=== PATIENT | female | born 2000 | race Caucasian/White ===

== ENCOUNTER → 2023-10-25 14:43 | Outpatient (CLI) | payer OTHER, SELFPAY ==
--- NOTE | 2023-10-25 14:47 | DI.CT.S_ITS ---
PROCEDURE: CT LUMBAR SPINE WO CON INDICATIONS: L-T SPINE PAIN, FUSION OF SPINE,H/O KYPHOSIS TECHNIQUE: Noncontrast 0.8 mm thick sections acquired from the T12 level to the sacrum. Sagittal and coronal reformats were constructed. For radiation dose reduction, the following was used: automated exposure control. COMPARISON: [facility], CR, XR THORACIC SPINE 2 VIEWS, 06/19/2023, 14:33. [facility], CT, CT THORACIC SPINE WO CON, 10/25/2023, 15:05. [facility], CR, XR LUMBAR SPINE WITH FLEXION EXTENSION 5 VIEWS, 06/19/2023, 14:24. FINDINGS: Image quality: There is artifact associated with the metallic hardware. Artifact from the metallic hardware is reduced by metal reconstruction algorithm. Bones: There is normal bony alignment. No acute vertebral body compression fractures. No suspicious lytic or blastic bony lesions. No pars defects. Extensive postoperative hardware can be seen, extending from the superior thoracic spine through the L3 level. No findings of hardware failure or hardware loosening are seen. Bone grafting material is noted. No significant neural foraminal or central canal narrowing can be seen. Soft tissues: No retroperitoneal masses or hematomas. Visualized aorta is normal in caliber. IMPRESSION: CT data acquired for intraoperative localization. Extensive thoracolumbar fixation hardware, without complication seen within the lumbar region. Dictated by: Jarvis Cazares M.D. on 10/25/2023 at 14:40 Approved by: Jarvis Cazares M.D. on 10/25/2023 at 14:43
--- NOTE | 2023-10-25 14:47 | DI.CT.S_ITS ---
PROCEDURE: CT THORACIC SPINE WO CON INDICATIONS: L-T SPINE PAIN,FUSIONOF SPINE,H/O KYPHOSIS TECHNIQUE: Noncontrast 0.8 mm thick sections acquired through the region of interest in the thoracic spine. Sagittal and coronal reformats were then constructed. For radiation dose reduction, the following was used: automated exposure control. COMPARISON: [facility], CT, CT LUMBAR SPINE WO CON, 10/25/2023, 15:05. [facility], CR, XR THORACIC SPINE 2 VIEWS, 06/19/2023, 14:33. [facility], CR, XR LUMBAR SPINE WITH FLEXION EXTENSION 5 VIEWS, 06/19/2023, 14:24. FINDINGS: Image quality: There is artifact associated with the metallic hardware. Artifact from the metallic hardware is reduced by metal reconstruction algorithm. Bones: There is normal overall bony alignment. No acute vertebral body compression fractures. No suspicious sclerotic or lytic bony lesions. Central spinal canal is of normal overall caliber. Extensive thoracolumbar fixation hardware is seen, with Lafleur rods beginning at the T3 level. Pedicle screws are seen, beginning at the T4 level and extending through to the lumbar spine. The right screw at T4 is laterally placed and the left screw at T5 is laterally placed. The screws otherwise are within normal limits. No findings of hardware failure or hardware loosening are seen. Bone grafting material is noted. Soft tissues: No paravertebral masses or hematomas. Visualized posteromedial lungs appear clear. IMPRESSION: Thoracolumbar fixation hardware, as described above. Thin-section CT data acquired for intraoperative localization. Dictated by: Jarvis Cazares M.D. on 10/25/2023 at 14:43 Approved by: Jarvis Cazares M.D. on 10/25/2023 at 14:46
== END ==
PROVIDERS: Referring Provider Physician Assistant; Visit Provider Physician Assistant
DX: M47.816 Spondylosis without myelopathy or radiculopathy, lumbar region (principal); M54.50 Low back pain, unspecified; M54.6 Pain in thoracic spine; Z87.39 Personal history of other diseases of the musculoskeletal system and connective tissue; Z98.1 Arthrodesis status
CPT/HCPCS: 72128; 72131

== ENCOUNTER → 2023-11-12 15:19 | Outpatient (CLI) | payer OTHER, SELFPAY ==
--- NOTE | 2023-11-12 | DI.MRI.S_ITS ---
PROCEDURE: MR LUMBAR SPINE WO CON INDICATIONS: lumbar pain TECHNIQUE: Noncontrast sagittal T1 spin echo and T2 fast echo, sagittal STIR, and T2 fast spin echo through the lumbar spine. In cases with scoliosis, additional coronal T2 fast spin echo may be performed. COMPARISON: , CR, XR LUMBAR SPINE WITH FLEXION EXTENSION 5 VIEWS, 06/19/2023, 14:24. [facility], CT, CT LUMBAR SPINE WO CON, 10/25/2023, 15:05. FINDINGS: Image quality: Fair; susceptibility artifact from thoracolumbar fusion hardware up to the level of L3 is present. Anatomy: Thoracolumbar transitional anatomy, consisting of rudimentary ribs at T12. Five non rib-bearing lumbar vertebrae. Alignment and Curvature: There is normal bony alignment. Thoracolumbar fusion hardware spanning down to L3 the. Bone Marrow: Marrow is of normal overall signal. No acute vertebral body compression fractures. Mild bilateral facet arthropathy at L3-L4, L4-L5, and L5-S1. Spinal Cord: Conus medullaris terminates at the T12-L1 level. Visualized cord demonstrates normal signal and size. Paraspinous Soft Tissues: No paravertebral masses. T12-L1: No significant central canal stenosis. No significant foraminal stenosis. L1-L2: No significant central canal stenosis. No significant foraminal stenosis. L2-L3: No significant central canal stenosis. No significant foraminal stenosis. L3-L4: No significant central canal stenosis. No significant foraminal stenosis. L4-L5: No significant central canal stenosis. No significant foraminal stenosis. L5-S1: No significant central canal stenosis. No significant foraminal stenosis. IMPRESSION: 1. No significant central canal or foraminal stenosis. 2. Mild bilateral facet arthropathy at the L3-L4, L4-L5, and L5-S1 levels. Dictated by: Musa Aragon M.D. on 11/12/2023 at 20:28 Approved by: Musa Aragon M.D. on 11/12/2023 at 20:38
--- NOTE | 2023-11-12 | DI.MRI.S_ITS ---
PROCEDURE: MR THORACIC SPINE WO CON INDICATIONS: hx fusion TECHNIQUE: Noncontrast sagittal T1 spine echo and T2 fast spin echo, sagittal STIR, and T2 fast spin echo through the thoracic spine. COMPARISON: [facility], CT, CT THORACIC SPINE WO CON, 10/25/2023, 15:05. [facility], CR, XR THORACIC SPINE 2 VIEWS, 06/19/2023, 14:33. [facility], CR, XR LUMBAR SPINE WITH FLEXION EXTENSION 5 VIEWS, 06/19/2023, 14:24. FINDINGS: Image quality: Fair; extensive susceptibility artifact secondary to thoracic fixation hardware. Alignment and Curvature: There is normal bony alignment. Bone Marrow: Marrow is of normal overall signal. No acute vertebral body compression fractures. Spinal Cord: Visualized spinal cord is normal in size and signal. Paraspinous Soft Tissues: No paravertebral masses. Miscellaneous: On axial images, central canal and foramina appear widely patent at all scanned levels. IMPRESSION: 1. Limited examination due to susceptibility artifact from the thoracic fusion hardware. 2. Visualized segments of the thoracic cord within normal limits without any severe central canal stenosis or severe foraminal stenosis. Dictated by: Musa Aragon M.D. on 11/12/2023 at 20:19 Approved by: Musa Aragon M.D. on 11/12/2023 at 20:27
== END ==
PROVIDERS: Referring Provider Physician Assistant; Visit Provider Physician Assistant
DX: M47.817 Spondylosis without myelopathy or radiculopathy, lumbosacral region (principal); M54.6 Pain in thoracic spine; M54.50 Low back pain, unspecified; Z87.39 Personal history of other diseases of the musculoskeletal system and connective tissue; M47.816 Spondylosis without myelopathy or radiculopathy, lumbar region; Z98.1 Arthrodesis status
CPT/HCPCS: 72146; 72148